=== PATIENT | female | born 1980 | race Caucasian/White ===

== ENCOUNTER → 2018-07-30 | Outpatient (CLI) | payer MEDICAID | END | disposition home or self-care (01) | LOC: U/S 15:00 | DX: Z32.01 Encounter for pregnancy test, result positive (principal) | CPT/HCPCS: 76801; 76817 ==

== ENCOUNTER 2018-12-12 18:05 | Emergency (ER) | payer MEDICAID ==
[2018-12-12] MEDS: IBUPROFEN 800 MG TAB PO (19:49)
== END 2018-12-12 21:20 | disposition home or self-care (01) ==
LOC: FTE 18:05
DX: J02.9 Acute pharyngitis, unspecified (principal)
CPT/HCPCS: 99282; Z7502